=== PATIENT | female | born 1985 | race Hispanic/Latino ===

== ENCOUNTER 2022-01-24 16:18 | Emergency (ER) | payer OTHER ==
[2022-01-24 20:03] LABS: Pregnancy Test - Urine (BHCG) Negative (Negative); Pregu Control Background? CLEAR/WHITE (CLR/WHITE); Pregu Control Bar Appear? YES (CONTROL BAR)
[2022-01-24] MEDS ORDERED: predniSONE 20 MG TAB ONE (20:21)
[2022-01-24] MEDS ORDERED: Diazepam 5 MG TAB ONE (20:22)
[2022-01-24] MEDS ORDERED: Ketorolac Tromethamine 30 MG/ML VIAL ONE (20:22)
== END 2022-01-24 20:40 | disposition home or self-care (01) ==
LOC: CSHERS 16:18
DX: S39.012A Strain of muscle, fascia and tendon of lower back, initial encounter (principal); M54.16 Radiculopathy, lumbar region; Z87.891 Personal history of nicotine dependence; W19.XXXA Unspecified fall, initial encounter
CPT/HCPCS: 72170; 72220; 81025; 96372; J1885; J7512